=== PATIENT | male | born 1990 ===

== ENCOUNTER → 2022-02-13 | Outpatient (CLI) | payer OTHER | LOC: MHCPAIN 08:42 | DX: M47.817 Spondylosis without myelopathy or radiculopathy, lumbosacral region (principal); M53.3 Sacrococcygeal disorders, not elsewhere classified; M54.16 Radiculopathy, lumbar region | CPT/HCPCS: G0463 ==

== ENCOUNTER → 2022-03-26 | Outpatient (CLI) | payer OTHER | LOC: MHCPAIN 10:36 | DX: M47.896 Other spondylosis, lumbar region (principal); M54.16 Radiculopathy, lumbar region; G89.29 Other chronic pain | CPT/HCPCS: G0463 ==